=== PATIENT | female | born 1975 | race Caucasian/White ===

== ENCOUNTER 2020-04-24 15:28 | Emergency (ER) | payer BC, SELFPAY ==
--- NOTE | ~2020-04-24 | XR_ITS ---
XR hand LT min 3V 04/24/2020 17:18 INDICATION: Left hand pain. Dog bites. PROCEDURE: 3 views left hand COMPARISON: No prior studies for comparison. FINDINGS: Fracture, dislocation or subluxation is not identified. The soft tissues appear within norm al limits. There are multiple punctate foreign bodies in the soft tissues of the fourth and fifth fin gers. IMPRESSION: 1: Foreign bodies of the fourth and fifth fingers. Reviewed, dictated and finalized at location A. H COLORER
[2020-04-24 15:35] VITALS: BP 191/110; PULSE 90; RESP 16; TEMP 36.7; O2SAT 100
[2020-04-24] MEDS: LIDOCAINE HCL 1% LOCAL INJ 20 ML VIAL (17:14)
--- NOTE | 2020-04-24 17:17 | ED.GENADULT ---
HPI - General Adult General Chief complaint: Animal Bite Stated complaint: cut finger Source: patient Mode of arrival: ambulatory Limitations: no limitations History of Present Illness HPI narrative: Nicki is a 45F with no significant PMH that presented to the ED with a laceration on the middle finger of her left hand and swelling in the ring finger of her left hand as well as other small abraisons. She broke up a dog fight just before coming. She had no other injuries. She does not know about the last known tetanus shot. Her dog is under observation by the [facility] for rabies. Related Data Home Medications Medication Instructions Recorded Confirmed amitriptyline 50 mg PO DAILY 04/24/20 04/24/20 duloxetine 60 mg PO DAILY 04/24/20 04/24/20 hydroxyzine pamoate 25 mg PO BID 04/24/20 04/24/20 levothyroxine [Euthyrox] 200 mcg PO DAILY 04/24/20 04/24/20 meloxicam 15 mg PO DAILY 04/24/20 04/24/20 tizanidine 4 mg PO BID 04/24/20 04/24/20 Allergies Allergy/AdvReac Type Severity Reaction Status Date / Time codeine Allergy Hives Verified 04/24/20 16:10 latex Allergy Unknown Verified 04/24/20 16:10 Review of Systems Constitutional: Constitutional: Reports no additional constitutional complaints Eyes: Eyes: Reports no additional eye complaints ENT: Reports system reviewed and no additional complaints, except as documented Cardiovascular: Cardiovascular: Reports no additional cardiovascular complaints Respiratory: Respiratory: Reports no additional respiratory complaints Gastrointestinal: Gastrointestinal: Reports no additional gastrointestinal complaints Genitourinary: Genitourinary: Reports no additional female genitourinary complaints Musculoskeletal: Musculoskeletal: Reports as per HPI Integumentary/Breasts: Skin/Breast: Reports as per HPI Neurologic: Reports system reviewed and no additional complaints, except as documented Psychiatric: Psychiatric: Reports no additional psychiatric complaints Endocrine: Endocrine: Reports no additional endocrine complaints Hematologic/Lymphatic: Hematologic/Lymphatic: Reports no additional hematologic/lymphatic complaints Allergic/Immunologic: Allergic/Immunologic: Reports no additional allergic/immunologic complaints Exam Const: General: no acute distress and alert Orientation/consciousness: patient oriented x3 Limitations: No altered mental status HENMT: Other: normocephalic, atraumatic Eyes: Conjunctivae: conjunctivae normal Pupils: Equal, round and reactive pupils present Neck: Neck: normal visual inspection Chest: Chest palpation & inspection: normal inspection of the chest Resp: Effort & Inspection: normal respiratory effort Cardio: Rate: regular rate Skin: Other: Multiple small abrasions on the fingers of both hands. The ring finger has a 1 cm horizontal lesion into the sub cutaneous tissue just distal to the DIP joint. Neuro: General: patient oriented x3 and moves all extremities Other: Sensation and strength intact in all fingers. Normal cap refill. Extrem: General: normal to inspection Course Course Emergency Course: Nicki was evaluated. Her wounds were soaked in Hibiclens for 10 min. The wounds were hemostatic. The only laceration that required a suture was the left middle finger repaired as above. However, the left ring finger had extensive swelling so the ring had to be cut off. Xrays were then taken. XR hand LT min 3V 04/24/2020 17:18 INDICATION: Left hand pain. Dog bites. PROCEDURE: 3 views left hand COMPARISON: No prior studies for comparison. FINDINGS: Fracture, dislocation or subluxation is not identified. The soft tissues appear within normal limits. There are multiple punctate foreign bodies in the soft tissues of the fourth and fifth fingers. IMPRESSION: 1: Foreign bodies of the fourth and fifth fingers. The radiograph did show apparent foreign bodies. However, when the hand was reexamined there was no wound at the site of the foreign bod
[2020-04-24] MEDS: AMOXICILLIN/CLAVULANATE K 875-125 MG TAB 1 TABLET PO (17:22)
[2020-04-24] MEDS: TETANUS,DIPHTHERIA,AC PERTUSSIS ADULT 0.5 ML (ADACEL) IM (17:23)
[2020-04-24 17:55] VITALS: RESP 14
== END 2020-04-24 17:46 | disposition home or self-care (01) ==
PROVIDERS: Emergency Provider Family Medicine
DX: S61.213A Laceration without foreign body of left middle finger without damage to nail, initial encounter (principal); W54.0XXA Bitten by dog, initial encounter
CPT/HCPCS: 12001; 73130; 90471; 90715; 99283; A9270

== ENCOUNTER 2020-10-28 09:55 | Outpatient (RCR) | payer BC, SELFPAY ==
--- NOTE | 2020-10-28 11:20 | PTOPEVAL ---
Thank you for referring Nicki Zarate to [facility].? The patient is scheduled to be seen for therapy? ____x/week for ___ weeks. Please review, sign, date and return this plan of care BIANCA. I agree with and certify that the following plan of care is medically necessary. Referring Physician Date Admitting Provider: Attending Provider: Tlyer Castañeda MD Referring Provider: *PT Outpatient Evaluation Start: 10/28/20 09:53 Freq: Status: Active Protocol: Document 10/28/20 09:53 ACR (Rec: 10/28/20 11:19 ACR [id number]) Therapy Assessment Status Assessment Status Assessment Status Evaluation Outpatient Past Medical History Gastrointestinal History Hx Gastroesophageal Reflux Disease Yes Musculoskeletal History Hx Fibromyalgia Yes Endocrine History Hx Hypothyroidism Yes Evaluation Information Problem Diagnosis low back pain Onset 09/27/20 Subjective Information Patient reports her pain was Query Text:As Reported By Patient/ getting bad over a year and a Family half ago. She went to the chiropractor and the pain only subsided for a couple days. She is taking a pain relievers and a muscle relaxer which are helping, but she does not like to take pills. She states she is starting injections next week. She states that she has numbness, tingling, and pain in the front of the thighs R>L. Patient states that she has the most difficulty getting out of her car, sitting still, lifting, standing in one place, navigating the steps, and walking for a period of time. Prior Level of Function Activity Level (Last 3 Months) Occupation [employer] worker Hand Dominance Ambidextrous Activity of Daily Living Ability Independent Indoor/Home Mobility Independent Community Mobility Independent Stairs Ability Independent Functional Cognition (Planning, Shopping Independent , Taking Medications) Cooking Yes Cleaning Yes Laundry Yes Shopping Yes Driving Yes Pain Assessment Timing of Pain Assessment Timing of Pain Assessment Assessment Pain Scale Pain Scale Used Num
== END 2020-10-28 14:54 | disposition home or self-care (01) ==
LOC: CHSPT 09:55
PROVIDERS: Visit Provider Pain Medicine Interventional Pain Medicine
DX: M54.16 Radiculopathy, lumbar region (principal); M54.17 Radiculopathy, lumbosacral region; M47.816 Spondylosis without myelopathy or radiculopathy, lumbar region; M47.817 Spondylosis without myelopathy or radiculopathy, lumbosacral region; G89.4 Chronic pain syndrome; F33.1 Major depressive disorder, recurrent, moderate; F41.1 Generalized anxiety disorder; M54.5 Low back pain
CPT/HCPCS: 97014; 97110; 97161; G0283

== ENCOUNTER 2021-08-11 13:25 | Emergency (ER) | payer OTHER, SELFPAY ==
--- NOTE | ~2021-08-11 | XR_ITS ---
EXAMINATION: XR ankle RT min 3V INDICATION: Right ankle pain TECHNIQUE: Four views of the right ankle are obtained. COMPARISON: None available FINDINGS: There is soft tissue swelling of ankle. Bone alignment is normal. There is subtle heterotop ic ossification projecting medial to the lateral malleolus between the talus and distal fibula. IMPRESSION: 1. Possible subtle avulsion injury of the lateral malleolus. Reviewed, dictated and finalized at location A.
[2021-08-11 13:36] VITALS: BP 143/89; PULSE 89; RESP 18; TEMP 35.9; O2SAT 97
--- NOTE | 2021-08-11 13:42 | ED.LOWEXIN ---
HPI - Extremity Injury (Lower) General Chief Complaint: Extremity Injury, Lower Stated Complaint: right ankle injury Time Seen by Provider: 08/11/21 13:42 Source: patient Mode of arrival: ambulatory History of Present Illness HPI Narrative: 46-year-old female hypothyroidism, depression, asthma presents to the ER after she twisted her right ankle 1 hour ago. She presents with -- pain and swelling around right lateral malleolus. -- Partial weight-bearing. No other injuries noted. MD complaint: ankle injury Onset (ago): hour(s) ( 1 hour ago) Injury: Right: ankle Type of Injury: inversion Place: home Severity: moderate Relieving factors: nothing Exacerbating factors: nothing Other symptoms: none Treatments prior to arrival: cold therapy Related Data Home Medications Medication Instructions Recorded Confirmed amitriptyline 50 mg tablet 50 mg PO DAILY 04/24/20 08/11/21 levothyroxine 200 mcg tablet 200 mcg PO DAILY 04/24/20 08/11/21 (Euthyrox) bupropion HCl 150 mg 24 hr tablet, 1 tablet PO DAILY 08/11/21 08/11/21 extended release omeprazole 20 mg DAILY 08/11/21 08/11/21 venlafaxine 37.5 mg 1 cap PO DAILY 08/11/21 08/11/21 capsule,extended release 24 hr Allergies Allergy/AdvReac Type Severity Reaction Status Date / Time codeine Allergy Hives Verified 08/11/21 13:42 latex Allergy Unknown Verified 08/11/21 13:42 Review of Systems Review of Systems: All systems reviewed & are unremarkable except as noted in HPI and below Constitutional: Constitutional: Reports as per HPI and Reports no additional constitutional complaints Eyes: Eyes: Reports as per HPI and Reports no additional eye complaints ENT: Reports system reviewed and no additional complaints, except as documented and Reports as per HPI Cardiovascular: Cardiovascular: Reports as per HPI and Reports no additional cardiovascular complaints Respiratory: Respiratory: Reports as per HPI and Reports no additional respiratory complaints Gastrointestinal: Gastrointestinal: Reports as per HPI and Reports no additional gastrointestinal complaints Genitourinary: Genitourinary: Reports no additional female genitourinary complaints and Reports as per HPI Musculoskeletal: Musculoskeletal: Reports no additional musculoskeletal complaints and Reports as per HPI Comments: right ankle pain and swelling Integumentary/Breasts: Skin/Breast: Reports system reviewed and no additional complaints, except as docu and Reports as per HPI Neurologic: Reports system reviewed and no additional complaints, except as documented and Reports as per HPI Psychiatric: Psychiatric: Reports no additional psychiatric complaints and Reports as per HPI Endocrine: Endocrine: Reports no additional endocrine complaints and Reports as per HPI Hematologic/Lymphatic: Hematologic/Lymphatic: Reports no additional hematologic/lymphatic complaints and Reports as per HPI Allergic/Immunologic: Allergic/Immunologic: Reports no additional allergic/immunologic complaints and Reports as per HPI [facility] Past Medical History Medical History (Updated 08/11/21 @ 15:05 by Ti Brannon MD) Asthma Depression with suicidal ideation Exam Const: General: healthy appearing, no acute distress and alert Nutritional Appearance: well nourished Orientation/consciousness: patient oriented x3 Limitations: no limitations HENMT: Head: normal to inspection Ears: external ears normal General nose exam: Normal external nose present Face and sinus: normal facial exam Mouth: Yes Normal oral and palatal mucosa present Throat: posterior oropharynx normal Eyes: Conjunctivae: conjunctivae normal Pupils: Equal, round and reactive pupils present EOM: EOMs intact bilaterally Neck: Neck: normal visual inspection, no lymphadenopathy and no meningeal signs Chest: Chest palpation & inspection: normal inspection of the chest Resp: Auscultation: diminished lung sounds Cardio: Rate: regular rate Rhythm:
--- NOTE | 2021-08-11 13:42 | PC.NURSE ---
Ice pack placed right ankle
[2021-08-11 13:46] VITALS: BP 143/89; PULSE 89; RESP 18; TEMP 35.9; O2SAT 97
[2021-08-11] MEDS: KETOROLAC 30 MG/ML VIAL (*BKC) IM (13:57)
[2021-08-11 15:35] VITALS: BP 146/96; PULSE 80; RESP 16; O2SAT 96
== END 2021-08-11 15:37 | disposition home or self-care (01) ==
PROVIDERS: Emergency Provider Internal Medicine Critical Care Medicine; PCP Internal Medicine
DX: S82.891A Other fracture of right lower leg, initial encounter for closed fracture (principal); S93.401A Sprain of unspecified ligament of right ankle, initial encounter
CPT/HCPCS: 29515; 73610; 96372; 99284; J1885; L4350

== ENCOUNTER 2021-09-19 07:24 | Emergency (ER) | payer OTHER, SELFPAY ==
--- NOTE | ~2021-09-19 | CT_ITS ---
EXAMINATION: CT brain wo con DATE: 09/19/2021 08:24 INDICATION: Headache, dizziness, blurred vision, weakness and nausea for one day TECHNIQUE: Computed tomography (CT) of the head was performed without intravenous contrast. The mA wa s adjusted according to patient size. Iterative reconstruction technique was employed. Exam dose: 60 5.33 mGy-cm total exam DLP. COMPARISON: None FINDINGS: The images in the lower brain are technically inadequate and nondiagnostic. I contacted the technologist who performed the examination and requested that the patient be asked to return for rep eat imaging. An addendum will be dictated at that time. No intracranial mass lesion or hemorrhage or cerebrovascular accident, midline shift or mass effect i s evident elsewhere. Normal ventricular size. No subdural or epidural hematoma is evident. No fracture or bone destruction of the cranial vault is noted. Mastoid air cells and included paranas al sinuses are unremarkable. IMPRESSION: Nondiagnostic examination; the patient will be asked to return for repeat imaging and ad dendum will be dictated at that time Reviewed, dictated and finalized at Location A. Reviewed, dictated and finalized at location B. IMPRESSION: Nondiagnostic examination; the patient will be asked to return for repeat imaging and addendum will be dictated at that time
[2021-09-19 07:25] VITALS: BP 144/100; PULSE 77; RESP 20; TEMP 36.4; O2SAT 99
--- NOTE | 2021-09-19 07:53 | ED.GENADULT ---
HPI - General Adult General Chief complaint: Headache Stated complaint: HEADACHE History of Present Illness HPI narrative: The patient is a 46-year-old woman with comorbidities of asthma, depression, hypothyroidism and a distant history of migraine headaches when she was in her 20s. She has not had an imaging study of the brain in many years, if ever. She is status post hysterectomy appendectomy and cholecystectomy. She presents with a migraine headache since 2:00 p.m. yesterday, mostly in the frontal aspect of the head, associated with dizziness and occasional nausea and mild blurred vision. The headache is not worsened by noise or movement or lights. She took Excedrin for the headache without relief. She slept most of the afternoon yesterday without relief of the headache. No motor or sensory deficits. No vomiting. No chest pain or abdominal pain. No urinary symptoms or upper respiratory infection symptoms. The headache has persisted so she comes here for further evaluation. Related Data Home Medications Medication Instructions Recorded Confirmed amitriptyline 50 mg tablet 50 mg PO DAILY 04/24/20 09/19/21 levothyroxine 200 mcg tablet 200 mcg PO DAILY 04/24/20 09/19/21 (Euthyrox) bupropion HCl 150 mg 24 hr tablet, 1 tablet PO DAILY 08/11/21 09/19/21 extended release omeprazole 20 mg DAILY 08/11/21 09/19/21 venlafaxine 37.5 mg 1 cap PO DAILY 08/11/21 09/19/21 capsule,extended release 24 hr flibanserin 100 mg tablet (Addyi) 10 mg PO DAILY 09/19/21 09/19/21 fluticasone 250 mcg-salmeterol 50 1 ea inhalation DAILY 09/19/21 09/19/21 mcg/dose blistr powdr for inhalation (Advair Diskus) Allergies Allergy/AdvReac Type Severity Reaction Status Date / Time codeine Allergy Hives Verified 08/11/21 13:42 latex Allergy Unknown Verified 08/11/21 13:42 Review of Systems Review of Systems: All systems reviewed & are unremarkable except as noted in HPI and below Constitutional: Constitutional: Reports no additional constitutional complaints, Denies anorexia, Denies body ache(s), Denies chills, Denies excessive sweating, Denies fatigue, Denies fever(s), Denies frequent falls, Denies headache(s), Denies malaise and Denies poor appetite Eyes: Eyes: Reports no additional eye complaints, Reports blurry vision, Denies change in vision, Denies irritation, Denies itchy eyes and Denies photophobia ENT: Reports system reviewed and no additional complaints, except as documented, Reports Normal hearing present, Denies change in voice, Denies dysphagia, Denies vertigo, Reports dizziness, Denies ear discharge, Denies headache(s), Denies hearing loss, Denies hoarseness, Denies nasal congestion, Denies neck pain, Denies sinus pressure, Denies sore throat and Denies throat swelling Cardiovascular: Cardiovascular: Reports no additional cardiovascular complaints, Denies chest pain, Denies syncope, Denies rapid heart rate, Denies irregular heart rhythm, Denies leg edema, Denies dyspnea and Denies slow heart rate Respiratory: Respiratory: Reports no additional respiratory complaints, Denies cough, Denies dyspnea, Denies stridor and Denies wheezing Gastrointestinal: Gastrointestinal: Reports no additional gastrointestinal complaints, Denies abdominal pain, Denies melena, Denies hematochezia, Denies dysphagia, Denies diarrhea, Denies nausea and Denies vomiting Genitourinary: Genitourinary: Denies hematuria, Denies urinary frequency, Denies dysuria, Denies flank pain and Denies urinary urgency Musculoskeletal: Musculoskeletal: Reports no additional musculoskeletal complaints, Denies abnormal gait, Denies back pain, Denies myalgias, Denies arthralgias, Denies joint swelling, Denies limited range of motion, Denies muscle cramps, Denies muscle weakness, Denies neck pain and Denies numbness Integumentary/Breasts: Skin/Breast: Reports system reviewed and no additional complaints, except as docu, Denies breast pain, Denies change in pigmentation, Denies p
[2021-09-19] MEDS: hydrALAZINE HCL 20 MG/ML VIAL 10 MG IV PUSH (08:10)
[2021-09-19] MEDS: ONDANSETRON INJ 4 MG/2 ML VIAL IV PUSH (08:11)
[2021-09-19] MEDS: SODIUM CHLORIDE 0.9% IV 1,000 ML 999 ML IV CONT (08:11)
[2021-09-19] MEDS: diphenhydrAMINE HCl INJ 50 MG/ML VIAL 25 MG IV PUSH (08:12)
[2021-09-19 08:15] LABS: Basophils Percent Auto 1.4 % (0.0-1.0); Eosinophils Absolute Auto 0.09 K/mm3 (0.02-0.50); Eosinophils Percent Auto 1.3 % (1.0-6.0); Hematocrit 38.5 % (35.0-49.0); Hemoglobin 12.7 g/dL (12.0-15.0); Immature Granulocyte Absolute 0.01 K/mm3 (0.00-0.00); Immature Granulocyte Percent A 0.1 % (0.0-0.0); Lymphocytes Absolute Auto 1.66 K/mm3 (1.10-4.50); Lymphocytes Percent Auto 23.1 % (18.0-42.0); Mean Corpuscular Hemoglobin 30.3 pg (27.0-31.0); Mean Corpuscular Volume 91.9 fL (78.0-102.0); Mean Platelet Volume 9.8 fl (9.2-11.8); Monocytes Absolute Auto 0.67 K/mm3 (0.10-0.90); Monocytes Percent Auto 9.3 % (2.0-11.0); Neutrophils Absolute Auto 4.7 K/mm3 (1.7-7.2); Neutrophils Percent Auto 64.8 % (50.0-70.0); Platelet Count Result 357 K/mm3 (150-420); Red Blood Count 4.19 M/mm3 (4.20-5.40); Red Cell Distribution Width 13.8 % (11.6-14.4); White Blood Count 7.2 K/mm3 (4.8-10.8)
[2021-09-19] MEDS: KETOROLAC 30 MG/ML VIAL (*BKC) IV PUSH (08:15)
[2021-09-19 08:33] LABS: Alanine Aminotransferase 28 U/L (14-59); Albumin Level 3.5 g/dL (3.4-5.0); Alkaline Phosphatase 81 U/L (46-116); Anion Gap 9 mmol/L (8-16); Aspartate Amino Transferase 15 U/L (15-37); Bilirubin,Total 0.3 mg/dL (0.00-1.00); Blood Urea Nitrogen 14 mg/dL (7-18); Calcium 8.4 mg/dL (8.5-10.1); Carbon Dioxide 26 mmol/L (21-32); Chloride 105 mmol/L (98-108); Estimated CRCL calculation 91 ml/min; Estimated Glomerular Filt Rate > 60; Glucose 96 mg/dL (70-99); Osmolality Calculated 290 mOsm/kg (285-295); Sodium 140 mmol/L (136-145); Total Protein 6.6 g/dL (6.4-8.2)
[2021-09-19 08:34] LABS: CRP < 0.2 mg/dL (0.0-0.9)
[2021-09-19 09:11] LABS: Erythrocyte Sedimentation Rate 6 mm/hr (0-15)
[2021-09-19 09:50] LABS: Add Urine Microscopic? NO; Appearance Urine Clear (Clear); Bilirubin Urine Negative (Negative); Blood Urine Negative (Negative); Color Urine Light Yellow (Yellow); Glucose Urine UA Negative (Negative); Ketones Urine Negative (Negative); Leukocyte Esterase Ur Negative LEU/UL (Negative); Nitrate Urine Negative (Negative); Protein Urine Negative (Negative); Urobilinogen Urine 0.2 mg/dL (0.2-1.0)
[2021-09-19] MEDS: MORPHINE SULFATE (*CRX) 4 MG/ML INJ IV PUSH (09:58)
[2021-09-19 10:06] VITALS: BP 134/96; PULSE 72
[2021-09-19 12:12] VITALS: BP 136/84; PULSE 66; RESP 20; TEMP 37.1; O2SAT 97
--- NOTE | 2021-09-19 12:29 | PC.NURSE ---
see scanned hard copy for vital signs.
== END 2021-09-19 12:28 | disposition home or self-care (01) ==
PROVIDERS: Emergency Provider Emergency Medicine; PCP Internal Medicine
DX: R51.9 Headache, unspecified (principal)
CPT/HCPCS: 36415; 70450; 80053; 81003; 85025; 85652; 86140; 96361; 96374; 96375; 99284; J0360; J1200; J1885; J2270; J2405; J7030

== ENCOUNTER 2021-09-30 08:45 | Emergency (ER) | payer OTHER, SELFPAY ==
[2021-09-30] VITALS (13 sets, daily range): BP systolic 138–146; BP diastolic 97–112; PULSE 120; RESP 18; TEMP 37.8–37.9; O2SAT 80–96
--- NOTE | 2021-09-30 09:25 | ED.URI ---
HPI - URI/Sore Throat General Chief Complaint: Upper Respiratory Infection Stated Complaint: covid symptoms Time Seen by Provider: 09/30/21 09:11 Source: patient and RN notes reviewed Mode of arrival: ambulatory Limitations: no limitations History of Present Illness MD elicited complaint: fever, sore throat and nasal congestion Onset (ago): day(s) (4) Consistency: constant Severity: moderate Description of mucous: clear Able to tolerate fluids by mouth: Yes Exacerbating factors: nothing Relieving factors: nothing Associated symptoms: myalgias, headache, cough, shortness of breath, nausea, vomiting and diarrhea Treatments prior to arrival: none Related Data Home Medications Medication Instructions Recorded Confirmed amitriptyline 50 mg tablet 50 mg PO DAILY 04/24/20 09/30/21 levothyroxine 200 mcg tablet 200 mcg PO DAILY 04/24/20 09/30/21 (Euthyrox) bupropion HCl 150 mg 24 hr tablet, 1 tablet PO DAILY 08/11/21 09/30/21 extended release omeprazole 20 mg PO DAILY 08/11/21 09/30/21 venlafaxine 37.5 mg 1 cap PO DAILY 08/11/21 09/30/21 capsule,extended release 24 hr flibanserin 100 mg tablet (Addyi) 10 mg PO DAILY 09/19/21 09/30/21 fluticasone 250 mcg-salmeterol 50 1 ea inhalation DAILY 09/19/21 09/30/21 mcg/dose blistr powdr for inhalation (Advair Diskus) Allergies Allergy/AdvReac Type Severity Reaction Status Date / Time codeine Allergy Hives Verified 08/11/21 13:42 latex Allergy Unknown Verified 08/11/21 13:42 Review of Systems Review of Systems: All systems reviewed & are unremarkable except as noted in HPI and below PMFSH Past Medical History Medical History Asthma Depression with suicidal ideation Social History Social History (Updated 09/30/21 @ 09:59 by Des Contreras MD) Smoking status: Former smoker Alcohol intake: never Substance use: never Exam Const: General: healthy appearing and no acute distress Nutritional Appearance: obese centrally obese Orientation/consciousness: patient oriented x3 Limitations: no limitations HENMT: Head: normal to inspection Ears: external ears normal Eyes: Conjunctivae: conjunctivae normal Pupils: Equal, round and reactive pupils present EOM: EOMs intact bilaterally Neck: Neck: normal visual inspection Resp: Effort & Inspection: normal respiratory effort Auscultation: clear to auscultation bilaterally Cardio: Rate: tachycardic Rhythm: regular rhythm GI: GI Palp: Yes Soft to palpation and No Tenderness to palpation present (GI) Auscultation: normal bowel sounds Back/Spine/Pelvis: Cervical Spine: cervical ROM normal Thoracic/Lumbar Spine: thoraco-lumbar ROM normal Skin: General skin exam: normal color Rashes: no rashes Neuro: General: patient oriented x3, moves all extremities, no focal motor deficits and CN's II-XI intact bilaterally Speech: normal speech Gait exam (Neuro): Normal gait present Extrem: General: normal to inspection and no clubbing, cyanosis or edema Psych: Mental Status: mental status grossly normal Affect: normal affect Attitude: cooperative Course Vital Signs Vital signs: Vital Signs Temperature 37.9 C H 09/30/21 08:50 Pulse Rate 120 H 09/30/21 08:50 Respiratory Rate 18 09/30/21 08:50 Blood Pressure 146/97 H 09/30/21 08:50 Pulse Oximetry 96 09/30/21 08:50 Oxygen Delivery Room Air 09/30/21 08:50 Temperature 37.8 C H 09/30/21 10:10 Pulse Rate 120 H 09/30/21 08:50 Respiratory Rate 18 09/30/21 08:50 Blood Pressure 138/99 H 09/30/21 10:00 Pulse Oximetry 95 09/30/21 10:01 Oxygen Delivery Room Air 09/30/21 08:50 MDM - URI/Sore Throat Differential Diagnosis Differential diagnosis: Likely upper respiratory infection, viral infection, bronchitis, influenza and other (COVID) Lab Data Attestation: I reviewed the patient's lab results. Result diagrams: 09/30/21 09:23 09/30/21 09:23 Lab
[2021-09-30 09:28] LABS: Hematocrit 40.6 % (35.0-49.0); Hemoglobin 13.4 g/dL (12.0-15.0); Mean Corpuscular Volume 90.8 fL (78.0-102.0); Platelet Count Result 314 K/mm3 (150-420); Red Blood Count 4.47 M/mm3 (4.20-5.40); Red Cell Distribution Width 13.2 % (11.6-14.4); White Blood Count 9.9 K/mm3 (4.8-10.8)
[2021-09-30 09:43] LABS: Alanine Aminotransferase 32 U/L (14-59); Albumin Level 3.7 g/dL (3.4-5.0); Alkaline Phosphatase 93 U/L (46-116); Anion Gap 10 mmol/L (8-16); Aspartate Amino Transferase 17 U/L (15-37); Bilirubin,Total 0.5 mg/dL (0.00-1.00); Blood Urea Nitrogen 12 mg/dL (7-18); Calcium 8.6 mg/dL (8.5-10.1); Carbon Dioxide 23 mmol/L (21-32); Chloride 101 mmol/L (98-108); Estimated CRCL calculation 86 ml/min; Estimated Glomerular Filt Rate > 60; Glucose 114 mg/dL (70-99); Osmolality Calculated 278 mOsm/kg (285-295); Potassium 3.7 mmol/L (3.5-5.1); Sodium 134 mmol/L (136-145); Total Protein 6.9 g/dL (6.4-8.2)
[2021-09-30 09:44] LABS: CRP 2.2 mg/dL (0.0-0.9)
[2021-09-30 09:46] LABS: Lactic Acid Reflex 0.8 mmol/L (0.4-2.0)
[2021-09-30 09:50] LABS: SARS-CoV-2 RNA PCR Positive (Negative)
[2021-09-30 09:51] LABS: Influenza A QL RT-PCR Negative (Negative); Influenza B QL RT-PCR Negative (Negative)
--- NOTE | 2021-10-06 12:16 | PC.NURSE ---
FINAL BLOOD CULTURES X2 RESULTS NO GROWTH. NO FURTHER TX NEEDED.
== END 2021-09-30 10:10 | disposition home or self-care (01) ==
PROVIDERS: Emergency Provider Emergency Medicine; PCP Internal Medicine
DX: U07.1 COVID-19 (principal)
CPT/HCPCS: 36415; 80053; 83605; 85027; 86140; 87040; 87502; 99283; C9803; U0003; U0005

== ENCOUNTER 2021-12-30 11:45 | Outpatient (CLI) | payer OTHER, SELFPAY ==
--- NOTE | ~2021-12-30 | XR_ITS ---
EXAMINATION: XR lumbar spine 2-3V DATE: 12/30/2021 12:06 INDICATION: Lumbar radiculopathy TECHNIQUE: Anteroposterior and lateral views of the lumbar spine, and cone-down lateral view of the l umbosacral junction were obtained. COMPARISON: None. FINDINGS: There are 4 mm of anterolisthesis of L5 on S1. There is moderate loss of intervertebral dis c space height at L5-S1. No fracture is identified. The vertebral body heights are normal. Small dege nerative osteophytes project from the anterior endplates of multiple vertebral bodies. Surgical clips in the right upper quadrant are likely from prior cholecystectomy. Surgical changes are noted in the left upper quadrant. IMPRESSION: 1. Mild lumbar spondylosis without acute findings. Reviewed, dictated and finalized at location F. ECTOR FABRIC
== END 2021-12-30 11:46 | disposition home or self-care (01) ==
LOC: CHSIMG 11:48
PROVIDERS: PCP Internal Medicine; Visit Provider Pain Medicine Interventional Pain Medicine
DX: G89.4 Chronic pain syndrome (principal); M47.26 Other spondylosis with radiculopathy, lumbar region; F33.1 Major depressive disorder, recurrent, moderate; M47.22 Other spondylosis with radiculopathy, cervical region; M47.27 Other spondylosis with radiculopathy, lumbosacral region; F41.1 Generalized anxiety disorder; M47.23 Other spondylosis with radiculopathy, cervicothoracic region; M47.812 Spondylosis without myelopathy or radiculopathy, cervical region
CPT/HCPCS: 72100

== ENCOUNTER → 2022-06-19 17:23 | Outpatient (CLI) | payer OTHER, SELFPAY ==
--- NOTE | ~2022-06-19 | XR_ITS ---
EXAMINATION: XR_KNEE1-2VLT_CR DATE: 06/20/2022 07:41 INDICATION: Left knee pain. TECHNIQUE: 2 views of left knee standing were obtained. COMPARISON: None. FINDINGS: Bone alignment is normal. No fracture. There is mild tricompartmental osteoarthritis charac terized by tiny osteophytes. No joint space narrowing. No knee joint effusion. IMPRESSION: 1. Mild left knee osteoarthritis. Reviewed, dictated and finalized at location A.
--- NOTE | ~2022-06-19 | XR_ITS ---
EXAMINATION: XR_[id number]_CR DATE: 06/20/2022 07:41 INDICATION: Right knee pain. TECHNIQUE: 2 views of right knee standing were obtained. COMPARISON: None. FINDINGS: Bone alignment is normal. No fracture. There is mild tricompartmental osteoarthritis charac terized by tiny osteophytes. No joint space narrowing. No knee joint effusion. IMPRESSION: 1. Mild right knee osteoarthritis. Reviewed, dictated and finalized at location A.
--- NOTE | ~2022-06-19 | XR_ITS ---
EXAMINATION: XR_CERV2-3V_CR DATE: 06/20/2022 07:41 INDICATION: Cervical radiculopathy. TECHNIQUE: 3 views of cervical spine were obtained. COMPARISON: None. FINDINGS: There is 2 mm anterolisthesis of C4 on C5 and C5 on C6. Vertebral body heights are normal. There is moderately decreased disc height at C5-C6 and mildly decreased disc height at C6-C7. There i s multilevel uncovertebral joint osteoarthritis, severe bilaterally at C5-C6. There is multilevel fac et joint osteoarthritis, severe on the right at C4-C5. There is mild central canal stenosis at C4-C5 and C5-C6. No prevertebral soft tissue swelling. IMPRESSION: 1. Moderate cervical spondylosis. Reviewed, dictated and finalized at location A.
== END ==
PROVIDERS: PCP Pain Medicine Interventional Pain Medicine; Visit Provider Pain Medicine Interventional Pain Medicine
DX: M47.23 Other spondylosis with radiculopathy, cervicothoracic region (principal); M47.26 Other spondylosis with radiculopathy, lumbar region; M47.27 Other spondylosis with radiculopathy, lumbosacral region; F41.1 Generalized anxiety disorder; F33.1 Major depressive disorder, recurrent, moderate; M47.22 Other spondylosis with radiculopathy, cervical region; M17.0 Bilateral primary osteoarthritis of knee
CPT/HCPCS: 72040; 73560

== ENCOUNTER 2022-06-28 17:35 | Emergency (ER) | payer OTHER, SELFPAY ==
[2022-06-28 17:37] VITALS: BP 126/83; PULSE 93; RESP 20; TEMP 36.6; O2SAT 98
--- NOTE | 2022-06-28 17:55 | ED.GENADULT ---
HPI - General Adult General Chief complaint: Wound/Laceration Stated complaint: wound care Time Seen by Provider: 06/28/22 17:40 History of Present Illness HPI narrative: The patient is a 47-year-old woman who saw her [employer] member 1 week ago. She underwent biopsy of a small area in the left vulva labia region, by a punch biopsy. No sutures were placed. A urine at that time revealed concerns about urinary tract infections social placed on Macrobid, started 3 days ago, due to symptoms of mild abdominal and back discomfort but without any dysuria urinary urgency or frequency. She has had problems needing to push harder to have initiation of the urine stream. She returns to the ER due to concerns about the biopsy site becoming more eschar appearing, with a black eschar to the wound. No tenderness. no purulent drainage. Related Data Home Medications Medication Instructions Recorded Confirmed amitriptyline 50 mg tablet 50 mg PO DAILY 04/24/20 06/28/22 levothyroxine 200 mcg tablet 200 mcg PO DAILY 04/24/20 06/28/22 (Euthyrox) bupropion HCl 150 mg 24 hr tablet, 1 tablet PO DAILY 08/11/21 06/28/22 extended release omeprazole 20 mg PO DAILY 08/11/21 06/28/22 venlafaxine 37.5 mg 1 cap PO DAILY 08/11/21 06/28/22 capsule,extended release 24 hr flibanserin 100 mg tablet (Addyi) 10 mg PO DAILY 09/19/21 06/28/22 fluticasone 250 mcg-salmeterol 50 1 ea inhalation DAILY 09/19/21 06/28/22 mcg/dose blistr powdr for inhalation (Advair Diskus) Allergies Allergy/AdvReac Type Severity Reaction Status Date / Time codeine Allergy Hives Verified 06/28/22 17:39 latex Allergy Unknown Verified 06/28/22 17:39 Review of Systems Review of Systems: All systems reviewed & are unremarkable except as noted in HPI and below Constitutional: Constitutional: Denies chills, Denies excessive sweating, Denies fatigue, Denies fever(s), Denies headache(s) and Denies weakness Eyes: Eyes: Denies change in vision and Denies photophobia ENT: Denies dysphagia, Denies dizziness, Denies headache(s), Denies lip swelling, Denies nasal congestion, Denies sore throat and Denies tongue swelling Cardiovascular: Cardiovascular: Denies chest pain, Denies syncope, Denies rapid heart rate and Denies dyspnea Respiratory: Respiratory: Denies cough, Denies dyspnea and Denies wheezing Gastrointestinal: Gastrointestinal: Denies abdominal pain, Denies constipation, Denies dysphagia, Denies diarrhea, Denies nausea and Denies vomiting Genitourinary: Genitourinary: Denies hematuria, Denies urinary frequency, Denies dysuria and Denies urinary urgency Musculoskeletal: Musculoskeletal: Denies back pain, Denies myalgias, Denies arthralgias, Denies joint swelling and Denies numbness Integumentary/Breasts: Skin/Breast: Denies pruritus, Denies erythema and Denies rash Neurologic: Denies confusion, Denies dizziness, Denies syncope, Denies headache(s), Denies focal weakness, Denies numbness and Denies weakness Psychiatric: Psychiatric: Denies anxiety and Denies confusion Endocrine: Endocrine: Denies excessive sweating and Denies fatigue Hematologic/Lymphatic: Hematologic/Lymphatic: Denies easy bleeding and Denies easy bruising Allergic/Immunologic: Allergic/Immunologic: Denies lip swelling, Denies tongue swelling and Denies wheezing PMFSH Past Medical History Medical History Asthma Depression with suicidal ideation Social History Social History Smoking status: Former smoker Alcohol intake: never Substance use: never Exam Const: General: healthy appearing, no acute distress, alert and well nourished Nutritional Appearance: well nourished Orientation/consciousness: patient oriented x3 Limitations: no limitations HENMT: Head: normal to inspection Ears: external ears normal Face/Nose/Sinus: normal facial exam Face and sinus: normal facial exam Mouth:
[2022-06-28] MEDS: SULFAMETHOXAZOLE/TRIMETHOPRIM 800/160 MG DS TABLET 1 TAB PO (18:11)
[2022-06-28 18:15] VITALS: BP 126/83; PULSE 93; RESP 18; TEMP 36.6; O2SAT 98
== END 2022-06-28 18:15 | disposition home or self-care (01) ==
LOC: CHSED 18:10
PROVIDERS: Emergency Provider Emergency Medicine; PCP Internal Medicine
DX: Z48.817 Encounter for surgical aftercare following surgery on the skin and subcutaneous tissue (principal); F32.A Depression, unspecified; Z87.891 Personal history of nicotine dependence; Z98.890 Other specified postprocedural states
CPT/HCPCS: 99283; A9270

== ENCOUNTER 2022-09-14 14:09 | Outpatient (RCR) | payer OTHER, SELFPAY ==
--- NOTE | 2022-09-14 15:47 | PTOPEVAL1 ---
Assessment and note entered by Kiana Espinoza DPT Evaluation Information Assessment Status Evaluation Diagnosis L shoulder pain Onset 08/14/22 Subjective Information Patient reports about 9 months ago she was in the hospital and was coming out of anesthesia and tried to get out of bed and pulled on a bed railing and MRI shows a torn labrum. She reports since then pain has improved but she has minimally used her L shoulder. Patient reports difficulty with washing dishes, folding laundry, dressing and doing her hair. She reports prior she did not have any shoulder difficulty. Reported Pain Level Pain Score 6: Self Report Assessment PT Clinical Summary Patient is a 47 year old female who presents to PT with L shoulder pain with torn labrum. Patient demonstrates decreased L shoulder AROM and strength limiting her ability to dress, sleep and perform house hold chores. Patient would benefit from skilled PT to address impairments and return to PLOF. Plan of Care Interventions Electrical Stimulation,Hot Pack/Cold Pack,Manual Therapy,Mechanical Traction,Neuro Re-education, Patient/Caregiver Educati,Therapeutic Activities, Therapeutic Exercise PT Services Indicated Yes Treatment Frequency and 2x weekly for 12 visits Duration These treatments will address the objective and functional deficits as defined above. The patient will be advanced safely and appropriately in order for the patient to progress towards his/her prior level of function. Additional exercises will be introduced and as well as a comprehensive home exercise program upon discharge, if needed, ?to ensure carryover of functional gains achieved in the clinic. This treatment plan has been reviewed and agreement upon by the patient.
--- NOTE | 2022-09-14 15:47 | OPREHPOC ---
Outpatient Therapy Plan of Care This is a Multidisciplinary Plan of Care that may contain components documented by all disciplines (PT, OT, and ST.) PT Problem 1 PT Problem #1 Knowledge Deficit PT Goal 1 Goal Patient to report independence with HEP Target Visit 6 PT Problem 2 PT Problem #2 Pain PT Goal 1 Goal 1. Patient to report highest pain at 2/10 2. Patient to report no sleep disturbance due to shoulder pain Target Visit 12 PT Problem 3 PT Problem #3 Impaired Range of Motion PT Goal 1 Goal Patient to demonstrate 160 deg of L shoulder flexion to return to house hold tasks Patient to demonstrate functional ER reach to T spine to return to dressing and bathing at PLOF Target Visit 12 PT Problem 4 PT Problem #4 Impaired Strength PT Goal 1 Goal Patient to demonstrate 5/5 strength of L shoulder to return to house hold chores at PLOF Target Visit 12 PT Problem 5 PT Problem #5 Impaired Functional Mobil PT Goal 1 Goal 1. Patient to report ability to dress with no limitations 2. Patient to report ability to do dishes at PLOF 3. Patient to report ability to do her hair at PLOF Target Visit 12
--- NOTE | 2022-09-28 15:27 | PCPTNOTE ---
patient cancelled visit in skilled PT today for an unknown reason. she is not currently scheduled for any additional PT visits.
--- NOTE | 2022-12-16 13:05 | PCPTNOTE ---
patient did not return for follow up visits and will be discharged
== END 2022-09-14 23:59 | disposition home or self-care (01) ==
LOC: CHSPT 14:09
DX: M25.512 Pain in left shoulder (principal); G89.29 Other chronic pain
CPT/HCPCS: 97014; 97110; 97161; G0283

== ENCOUNTER 2022-11-20 20:07 | Emergency (ER) | payer OTHER, SELFPAY ==
--- NOTE | ~2022-11-20 | CT_ITS ---
EXAMINATION: CT abdomen pelvis wo con DATE: 11/20/2022 20:49 INDICATION: Mid abdominal pain. TECHNIQUE: Computed tomography (CT) of the abdomen and pelvis was performed without intravenous contr ast. Automated exposure control and iterative reconstruction technique were employed. The dose-length product was 521.75 mGy-cm. COMPARISON: None. FINDINGS: The visualized portions of lung bases demonstrate mild atelectasis. No pleural effusion. Th e heart size is normal. No pericardial effusion. There are changes of gastric bypass procedure. There is a small sliding hiatal hernia. The liver is normal. There are changes of cholecystectomy. The spl een, pancreas, adrenal glands, and kidneys are normal. There are no dilated loops of bowel. There are changes of appendectomy. There are no pathologically enlarged lymph nodes. There is no free intraper itoneal fluid. There is severe lumbar spondylosis. IMPRESSION: 1. Small sliding hiatal hernia. Gastric bypass procedure. Reviewed, dictated and finalized at location E.
[2022-11-20 20:10] VITALS: BP 144/97; PULSE 88; RESP 20; TEMP 36.6; O2SAT 98
--- NOTE | 2022-11-20 20:19 | ED.ABDPAIN ---
HPI - Abdominal Pain General Chief Complaint: Abdominal Pain Stated Complaint: abd pain/nausea Time Seen by Provider: 11/20/22 20:09 Source: patient and family Mode of arrival: ambulatory Limitations: no limitations History of Present Illness HPI narrative: patient is a 47-year-old female with mid epigastric pain for the past 3 hours. The pain is not moving and staying in the same place in the epigastric region. Significantly she has had a gastric bypass in the past. She has associated nausea and regurgitation type symptoms. patient had some [employer] a few hours ago. MD elicited complaint: abdominal pain Pertinent past history: other ( Gastric bypass, hysterectomy, hiatal hernia repair, gallbladder removal, appendix removal, right ovarian cyst / mass known) Onset (ago): hour(s) (3) Pain Consistency: constant Location: epigastric Severity: moderate Pain scale (0-10): 7 Quality: cramping and sharp Radiation: back Migration to: no migration Exacerbating factors: nothing Relieving factors: nothing Associated symptoms: nausea Related Data Home Medications Medication Instructions Recorded Confirmed amitriptyline 50 mg tablet 50 mg PO DAILY 04/24/20 11/20/22 levothyroxine 200 mcg tablet 200 mcg PO DAILY 04/24/20 11/20/22 (Euthyrox) bupropion HCl 150 mg 24 hr tablet, 1 tablet PO DAILY 08/11/21 11/20/22 extended release venlafaxine 37.5 mg 1 cap PO DAILY 08/11/21 11/20/22 capsule,extended release 24 hr Allergies Allergy/AdvReac Type Severity Reaction Status Date / Time codeine Allergy Hives Verified 06/28/22 17:39 latex Allergy Unknown Verified 06/28/22 17:39 NSAIDS (Non-Steroidal Allergy Unknown Verified 11/20/22 20:13 Anti-Inflamma Review of Systems Review of Systems: All systems reviewed & are unremarkable except as noted in HPI and below Constitutional: Constitutional: Reports no additional constitutional complaints Eyes: Eyes: Reports no additional eye complaints ENT: Reports system reviewed and no additional complaints, except as documented Cardiovascular: Cardiovascular: Reports no additional cardiovascular complaints Respiratory: Respiratory: Reports no additional respiratory complaints Gastrointestinal: Gastrointestinal: Reports no additional gastrointestinal complaints Genitourinary: Genitourinary: Reports no additional female genitourinary complaints Musculoskeletal: Musculoskeletal: Reports no additional musculoskeletal complaints Integumentary/Breasts: Skin/Breast: Reports system reviewed and no additional complaints, except as docu Neurologic: Reports system reviewed and no additional complaints, except as documented Psychiatric: Psychiatric: Reports no additional psychiatric complaints Endocrine: Endocrine: Reports no additional endocrine complaints Hematologic/Lymphatic: Hematologic/Lymphatic: Reports no additional hematologic/lymphatic complaints Allergic/Immunologic: Allergic/Immunologic: Reports no additional allergic/immunologic complaints PMFSH Past Medical History Medical History Asthma Depression with suicidal ideation Social History Social History Smoking status: Former smoker Alcohol intake: never Substance use: never Exam Const: General: healthy appearing Nutritional Appearance: well nourished Orientation/consciousness: patient oriented x3 Other: acute pain distress HENMT: Head: normal to inspection Ears: external ears normal Face/Nose/Sinus: Normal external nose present Eyes: Conjunctivae: conjunctivae normal Pupils: Equal, round and reactive pupils present EOM: EOMs intact bilaterally Neck: Neck: normal visual inspection Chest: Chest palpation & inspection: normal inspection of the chest Resp: Effort & Inspection: normal respiratory effort Auscultation: clear to auscultation bilaterally and no crackles Cardio: R
[2022-11-20] MEDS: MAG HYDROX/ALUMINUM HYD/SIMETH 30 ML, PHENobarb/HYOSCY/ATROPINE/SCOP 32.4 MG, LIDOCAINE... PO (20:26)
[2022-11-20 20:38] LABS: Basophils Absolute Auto 0.09 K/mm3 (0.00-0.10); Basophils Percent Auto 1.5 % (0.0-1.0); Eosinophils Absolute Auto 0.05 K/mm3 (0.02-0.50); Eosinophils Percent Auto 0.8 % (1.0-6.0); Hematocrit 38.6 % (35.0-49.0); Hemoglobin 12.9 g/dL (12.0-15.0); Immature Granulocyte Absolute 0.02 K/mm3 (0.00-0.00); Immature Granulocyte Percent A 0.3 % (0.0-0.0); Lymphocytes Absolute Auto 2.44 K/mm3 (1.10-4.50); Lymphocytes Percent Auto 39.7 % (18.0-42.0); Mean Corpuscular HGB Conc 33.4 g/dL (32.0-36.0); Mean Corpuscular Volume 92.8 fL (78.0-102.0); Monocytes Percent Auto 8.1 % (2.0-11.0); Neutrophils Percent Auto 49.6 % (50.0-70.0); Platelet Count Result 352 K/mm3 (150-420); Red Blood Count 4.16 M/mm3 (4.20-5.40); Red Cell Distribution Width 13.2 % (11.6-14.4); White Blood Count 6.1 K/mm3 (4.8-10.8)
[2022-11-20 20:55] LABS: Alanine Aminotransferase 34 U/L (14-59); Albumin Level 3.5 g/dL (3.4-5.0); Alkaline Phosphatase 93 U/L (46-116); Anion Gap 10 mmol/L (8-16); Aspartate Amino Transferase 18 U/L (15-37); Bilirubin,Total 0.2 mg/dL (0.00-1.00); Blood Urea Nitrogen 19 mg/dL (7-18); Carbon Dioxide 23 mmol/L (21-32); Chloride 105 mmol/L (98-108); Estimated CRCL calculation 76 ml/min; Estimated Glomerular Filt Rate > 60; Glucose 86 mg/dL (70-99); Lipase 37 U/L (16-77); Osmolality Calculated 287 mOsm/kg (285-295); Potassium 3.7 mmol/L (3.5-5.1); Sodium 138 mmol/L (136-145); Total Protein 6.5 g/dL (6.4-8.2)
[2022-11-20 21:00] LABS: Lactic Acid Reflex 1.5 mmol/L (0.4-2.0)
[2022-11-20 21:13] LABS: Appearance Urine Clear (Clear); Bilirubin Urine Negative (Negative); Blood Urine Negative (Negative); Color Urine Yellow (Yellow); Glucose Urine UA Negative (Negative); Ketones Urine Trace (Negative); Leukocyte Esterase Ur Negative LEU/UL (Negative); Nitrate Urine Negative (Negative); Protein Urine Negative (Negative); pH Urine 6.5 (5.0-8.0)
[2022-11-20 21:21] LABS: Add Urine Microscopic? YES; Bacteria Urine 2+ /hpf; Calcium Oxalate Crystals Urine Present /hpf; Mucus Urine Few /lpf; Squamous Epithelial Cell Urine Moderate /hpf (Few); WBC Urine 0-3 /hpf (0-3)
[2022-11-20 21:36] VITALS: BP 124/89; PULSE 68; RESP 18; TEMP 36.6; O2SAT 99
== END 2022-11-20 21:41 | disposition home or self-care (01) ==
PROVIDERS: Emergency Provider Emergency Medicine
DX: K29.00 Acute gastritis without bleeding (principal); Z98.84 Bariatric surgery status; F32.A Depression, unspecified
CPT/HCPCS: 36415; 74176; 80053; 81001; 83605; 83690; 85025; 99284; A9270

== ENCOUNTER 2023-12-13 14:03 | Outpatient (CLI) | payer OTHER, SELFPAY ==
--- NOTE | ~2023-12-13 | XR_ITS ---
Left Hand Technique: PA and lateral views were obtained. Clinical History: Joint pain Findings: No acute fracture or dislocation is seen. Osseous alignment is anatomic. Joint spaces are p reserved. Soft tissues are unremarkable. Impression: Unremarkable left hand. Reviewed, dictated and finalized at location M. Impression: Unremarkable left hand.
--- NOTE | ~2023-12-13 | XR_ITS ---
Left Shoulder Technique: AP and axillary views were obtained. Clinical History: Pain Findings: No fracture or dislocation is seen. Osseous alignment is anatomic. The glenohumeral and acr omioclavicular joint spaces are preserved. Soft tissues are unremarkable. Impression: Unremarkable left shoulder radiographs. Reviewed, dictated and finalized at [facility]. Impression: Unremarkable left shoulder radiographs.
--- NOTE | ~2023-12-13 | XR_ITS ---
Right Shoulder Technique: AP and axillary views were obtained. Clinical History: Pain Findings: No fracture or dislocation is seen. Osseous alignment is anatomic. The glenohumeral and acr omioclavicular joint spaces are preserved. Possible mild erosive change of the distal clavicle. Soft tissues are unremarkable. Impression: Possible mild erosive or degenerative change of the distal clavicle. Reviewed, dictated and finalized at location . Impression: Possible mild erosive or degenerative change of the distal clavicle.
--- NOTE | ~2023-12-13 | XR_ITS ---
Right Hand Technique: PA and lateral views were obtained. Clinical History: Joint pain Findings: No acute fracture or dislocation is seen. Osseous alignment is anatomic. There is mild to m oderate degenerative change of the first CMC joint. Remaining joint spaces are intact. Soft tissues a re unremarkable. Impression: [id number] degenerative change of the first CMC joint. Reviewed, dictated and finalized at location M. Impression: [id number] degenerative change of the first CMC joint.
== END 2023-12-13 14:04 | disposition home or self-care (01) ==
PROVIDERS: PCP Physician Assistant; Visit Provider Physician Assistant
DX: M25.50 Pain in unspecified joint (principal); M19.041 Primary osteoarthritis, right hand
CPT/HCPCS: 73030; 73120; 73562

== ENCOUNTER 2024-01-22 11:29 | Outpatient (CLI) | payer OTHER, SELFPAY ==
--- NOTE | ~2024-01-22 | XR_ITS ---
XR thoracic spine 3V DATE: 01/22/2024 12:10 INDICATION: Radiculopathy TECHNIQUE: AP, lateral, swimmer views COMPARISON: None FINDINGS: No fracture or dislocation. The thoracic pedicles are intact. No paraspinal soft tissue thi ckening. Thoracic interspaces appear preserved. IMPRESSION: No significant abnormality Reviewed, dictated and finalized at location A. ND HULLER IMPRESSION: No significant abnormality
--- NOTE | ~2024-01-22 | XR_ITS ---
XR cervical spine 4-5V DATE: 01/22/2024 12:10 INDICATION: Cervical radiculopathy TECHNIQUE: AP, open-mouth, lateral views COMPARISON: None FINDINGS: C1 and C2 are normally aligned and the odontoid process is intact. There is slight anterolisthesis at C4-5 and C5-6. There is moderately prominent loss of interspace height at C5-6 and moderately severe loss of disc sp jessica height at C6-7. There is mild anterolisthesis at C7-T1. There is uncovertebral joint spurring at C5-6 and on the right at C6-7. No fracture or dislocation or locked facet. IMPRESSION: Moderate cervical spondylosis; no fracture or dislocation or locked facet Reviewed, dictated and finalized at location A. CE[employer]SEM[employer]Y SUPERVISOR
--- NOTE | ~2024-01-22 | XR_ITS ---
XR lumbar spine 2-3V DATE: 01/22/2024 12:10 INDICATION: Radiculopathy TECHNIQUE: AP, lateral, coned lateral lumbosacral views COMPARISON: None FINDINGS: There is mild lower thoracic and lumbar spine dextroscoliosis. There is approximately 4.5 m m anterolisthesis at L4-5 and L5-S1, likely due to degenerative change at the apophyseal joints. No lumbar spine fracture or bone destruction is evident. Included lower thoracic and lumbar pedicles are intact. There is mild loss of interspace height at L3-4 and L4-5 and moderately severe loss of interspace hei ght at L5-S1. The sacroiliac joints are intact. Status post cholecystectomy. IMPRESSION: Mild thoracic and lumbar dextroscoliosis Grade 1 anterolisthesis at L4-5 and L5-S1 likely due to degenerative change at the possible joints Degenerative disc disease, most prominent at L5-S1 Reviewed, dictated and finalized at location A. E RECLAMATION TENDER
== END 2024-01-22 11:30 | disposition home or self-care (01) ==
LOC: MICIMG 11:32
PROVIDERS: PCP Physician Assistant; Visit Provider Pain Medicine Interventional Pain Medicine
DX: M47.22 Other spondylosis with radiculopathy, cervical region (principal); M47.23 Other spondylosis with radiculopathy, cervicothoracic region; M47.24 Other spondylosis with radiculopathy, thoracic region; F33.1 Major depressive disorder, recurrent, moderate; F41.1 Generalized anxiety disorder; G89.4 Chronic pain syndrome; M51.379 Other intervertebral disc degeneration, lumbosacral region without mention of lumbar back pain or lower extremity pain
CPT/HCPCS: 72050; 72072; 72100